=== PATIENT | male | born 1985 | race Caucasian/White ===

== ENCOUNTER 2016-10-15 14:40 | Emergency (ER) | payer SELFPAY ==
[2016-10-15 14:51] VITALS: BP 130/75; BMI 25.1
--- NOTE | 2016-10-15 16:33 | DR.GENAD ---
HPI - PCP Primary Care Physician: NFD - Complaint/Symptoms Chief Complaint Doctors Comments: Patient states that he has had diarrhea and took Imodium and that did not help initially now he has abdominal pain and not able to have BM Chief Complaint:: PT WENT TO [facility] LAST WEEK ABD DX HIM WITH COLITITIS,, AND PT C/O " SOMETHING POPPING IN HIS STOMACK AND HAVING PAIN SINCE THAN. PT ALSO IS HAVE DIARRHEA.. Self Treatment fo Chief Complaint: PT C/O HAVING A KNOT TO HIS EPIGASTRIC AREA .. - Source History Provided: Patient - Mode of Arrival Mode of Arrival: Ambulatory - Timing Onset of Chief Complaint: 10/10/16 PMH - PMH Past Medical History: No Past Surgical History: Yes Past Surgical History Comment: ORTHO- SURGERY.. - Family History History of Family Medical Conditions: No - Social History Does patient currently use any type of tobacco product: No Have you used tobacco products in the last 12 months: No Type of Tobacco Use: Cigarettes How many years tobacco product used: 15 Does any household member use tobacco: No Alcohol Use: None Do you use any recreational Drugs:: No Lives With: Family Lives Where: Home - infectious screening In the last 2 months have you had wt loss of >10#?: NO Have you had fever, night sweats or hemotysis?: No Have you traveled outside the country in the last 6 months?: No Isolation: Standard ROS - Review of Systems Eyes: No Symptoms Reported ENTM: No Symptoms Reported Respiratoy: No Symptoms Reported Cardiovascular: No Symptoms Reported Gastrointestinal/Abdominal: Abdominal Pain Genitourinary: No Symptoms Reported Neurological: No Symptoms Reported Musculoskeletal: No Symptoms Reported Integumentary: No Symptoms Reported Hematologic/Lymphatic: No Symptoms Reported Endocrine: No Symptoms Reported Psychiatric: No Symptoms Reported All Other Systems: Reviewed and Negative PE - Vital Signs Vitals: Temperature 99.5 F Pulse Rate 88 Respiratory Rate 20 Blood Pressure 130/75 O2 Sat by Pulse Oximetry 98 - General Limitations: No Limitations General Appearance: Alert, In No Apparent Distress - Head Head Exam: Normal Inspection, Atraumatic - Eyes Eye exam: Normal Appearance, PERRL, EOMI - ENT ENT Exam: Normal Exam External Ear Exam: Normal External Inspection TM/Canal Exam: Bilateral Normal Nose Exam: Normal Nose Exam Mouth Exam: Normal Inspection Throat Exam: Normal Inspection - Neck Neck Exam: Normal Inspection - Chest Chest Inspection: Normal Inspection - Respiratory Respiratory Exam: Normal Lung Sounds Bilat Respiratory Exam: Bilateral Clear to Auscultation - Cardiovascular Cardiovascular Exam: Regular Rate, Normal Rhythm - Abdominal Exam Abdominal Exam: Normal Inspection. negative: Distention, Rebound, Rigidity Abdominal Tenderness: Mild - Extremities Extremities Exam: Normal Inspection, Full ROM - Back Back Exam: Normal Inspection - Neurologic Neurological Exam: Alert, Oriented X3, CN II-XII Intact - Psychiatric Psychiatric Exam: Normal Affect - Skin Skin Exam: Warm, Dry, Intact Course - Reevaluation 1st: Improved ROR - Labs Reviewed Result Diagrams: 10/15/16 19:15 10/15/16 19:15 Laboratory: WBC 9.3 X10^3/uL (3.6-10.0) 10/15/16 19:15 RBC 4.97 X10^6/uL (4.7-6.0) 10/15/16 19:15 Hgb 14.2 g/dL (13.5-18.0) 10/15/16 19:15 Hct 41.6 % (42.0-54.0) L 10/15/16 19:15 MCV 83.8 fL (80.0-100.0) 10/15/16 19:15 MCH 28.6 pg (27.0-34.0) 10/15/16 19:15 MCHC 34.1 g/dL (33.0-35.0) 10/15/16 19:15 RDW 15.5 % (11.6-16.5) 10/15/16 19:15 Plt Count 248 X10^3/uL (150.0-450.0) 10/15/16 19:15 MPV 7.9 fL (7.4-11.0) 10/15/16 19:15 Neut % 53.2 % (42.0-75.0) 10/15/16 19:15 Lymph % 27.4 % (21.0-51.0) 10/15/16 19:15 Griggs % 15.6 % (0.0-13.0) H 10/15/16 19:15 Eos % 3.1 % (0.9-2.9) H 10/15/16 19:15 Baso % 0.7 % (0.2-1.0) 10/15/16 19:15 Neut # 5.0 x10^3/uL (2.2-4.8) H 10/15/16 19:15 Lymph # 2.5 X10^3/uL (1.3-2.9) 10/15/16 19:15 Griggs # 1.4 x10^3/uL (0.3-0.8) H 10/15/16 19:15 Eos # 0.3 x10^3/uL (0.0-0.2) H 10/15/16 19:15 Baso # 0.1 X10^3/uL (0.0-0.1) 10/15/16 19:15 Absolute Nucleated RBC 0.0 /100WBC 10/15/16 19:15 Specimen Type Clean catch urine 10/15/16 17:00 Urine Color Yellow (YELLOW) 10/15/16 17:00 Urine Appearance Clear (CLEAR) 10/15/16 17:00 Urine pH 5.0 (5.0 - 8.0) 10/15/16 17:00 Ur Specific [place] 1.020 (1.000-1.030) 10/15/16 17:00 Urine Protein Negative (NEGATIVE) 10/15/16 17:00 Urine Glucose (UA) Negative (NEGATIVE) 10/15/16 17:00 Urine Ketones Negative (NEGATIVE) 10/15/16 17:00 Urine Occult Blood Negative (NEGATIVE) 10/15/16 17:00 Urine Nitrite Negative (NEGATIVE) 10/15/16 17:00 Urine Bilirubin Negative (NEGATIVE) 10/15/16 17:00 Urine Urobilinogen Normal (NORMAL) 10/15/16 17:00 Ur Leukocyte Esterase Negative (NEGATIVE) 10/15/16 17:00 Urine RBC 0-1 /HPF (NEGATIVE) 10/15/16 17:00 Urine WBC None seen /HPF (NEGATIVE) 10/15/16 17:00 Ur Squamous Epith Cells Negative /HPF (NEGATIVE) 10/15/16 17:00 Amorphous Sediment Trace /HPF (NEGATIVE) 10/15/16 17:00 Urine Bacteria Trace /HPF (NEGATIVE) 10/15/16 17:00 Ur Culture Indicated? No/not indicated 10/15/16 17:00 Stool for White Cells Rare (None) 10/15/16 19:14 - XRAY XRAY Interpreted by: Radiologist (Acute Abdominal Series:The lungs are clear without consolidation,effusion or pneumothorax. The cardiac and mediastinal contours are within normal limits. Flat plate and upright evaluation of the abdomen demonstrates a normal bowel gas pattern. No gross free intraperitoneal air. No pathological soft tissus mass or4 calcification can be observed. The bony structures are grossly intact.) - Diagnosis Discharge Problem: Constipation due to slow transit - Discharge Plan Condition: Stable - Follow ups/Referrals Follow ups/Referrals: NFD,None [Primary Care Provider] - 3 days - Instructions
[2016-10-15 17:16] LABS: BILIRUBIN,URINE NEGATIVE (NEGATIVE); BLOOD/HEMOGLOBIN,URINE NEGATIVE (NEGATIVE); GLUCOSE, URINE NEGATIVE (NEGATIVE); KETONES,URINE NEGATIVE (NEGATIVE); LEUKOCYTE ESTERASE ,URINE NEGATIVE (NEGATIVE); NITRITES,URINE NEGATIVE (NEGATIVE); PROTEIN,URINE NEGATIVE (NEGATIVE); UROBILINOGEN,URINE NORMAL (NORMAL)
[2016-10-15 17:26] LABS: AMORPHOUS SEDIMENT,UR TRACE /HPF (NEGATIVE); APPEARANCE,URINE CLEAR (CLEAR); BACTERIA,URINE TRACE /HPF (NEGATIVE); COLOR,URINE YELLOW (YELLOW); RBC,URINE 0-1 /HPF (NEGATIVE); SQUAMOUS EPITHELIAL CELL,UR NEGATIVE /HPF (NEGATIVE)
[2016-10-15] MEDS ORDERED: NS 1000 ML 1,000 ML ONE (17:42)
[2016-10-15] MEDS ORDERED: NS 1000 ML 1,000 ML IV SCH (18:00)
[2016-10-15] MEDS ORDERED: TORADOL 30 MG VIAL IVP ONE (18:56)
[2016-10-15] MEDS ORDERED: TORADOL 30 MG VIAL ONE (18:58)
[2016-10-15 19:20] LABS: BASOPHILS # (AUTO) 0.1 X10^3/uL (0.0-0.1); BASOPHILS % (AUTO) 0.7 % (0.2-1.0); EOSINOPHILS # (AUTO) 0.3 x10^3/uL (0.0-0.2); EOSINOPHILS % (AUTO) 3.1 % (0.9-2.9); HEMATOCRIT 41.6 % (42.0-54.0); HEMOGLOBIN 14.2 g/dL (13.5-18.0); LYMPHOCYTES # (AUTO) 2.5 X10^3/uL (1.3-2.9); LYMPHOCYTES % (AUTO) 27.4 % (21.0-51.0); MEAN CORPUSCULAR HEMOGLOBIN 28.6 pg (27.0-34.0); MEAN CORPUSCULAR HGB CONC 34.1 g/dL (33.0-35.0); MEAN CORPUSCULAR VOLUME 83.8 fL (80.0-100.0); MEAN PLATELET VOLUME 7.9 fL (7.4-11.0); MONOCYTES # (AUTO) 1.4 x10^3/uL (0.3-0.8); MONOCYTES % (AUTO) 15.6 % (0.0-13.0); NEUTROPHILS % (AUTO) 53.2 % (42.0-75.0); PLATELET COUNT 248 X10^3/uL (150.0-450.0); RED BLOOD COUNT 4.97 X10^6/uL (4.7-6.0); RED CELL DISTRIBUTION WIDTH 15.5 % (11.6-16.5); WHITE BLOOD COUNT 9.3 X10^3/uL (3.6-10.0)
--- NOTE | 2016-10-15 19:23 | RAD ---
HISTORY: Abdominal pain Study: Acute abdominal series Comparison: None Findings: The lungs are clear without consolidation, effusion or pneumothorax. The cardiac and mediastinal co ntours are within normal limits. Flat plate and upright evaluation of the abdomen demonstrates a normal bowel gas pattern. No gross f ree intraperitoneal air. No pathological soft tissue mass or calcification can be observed. The bon y structures are grossly intact. IMPRESSION: 1. No acute cardiopulmonary disease. 2. No evidence for acute abdominal pathology identified. Reported By:
[2016-10-15 19:37] LABS: ALANINE AMINOTRANSFERASE 33 Units/L (12-78); ALBUMIN 3.7 g/dL (3.4-5.0); ALKALINE PHOSPHATASE 101 Units/L (46-116); ASPARTATE AMINO TRANSFERASE 19 Units/L (15-37); BLOOD UREA NITROGEN 14 mg/dL (7-18); CALCIUM 8.4 mg/dL (8.5-10.1); CARBON DIOXIDE 25.1 mmol/L (21-32); CHLORIDE 107 mmol/L (98-107); CREATININE 0.93 mg/dL (0.70-1.30); GLUCOSE 89 mg/dL (65-99); SODIUM 142 mmol/L (136-145); TOTAL PROTEIN 7.1 g/dL (6.4-8.2); eGFR BLACK RACES > 60 (>60); eGFR NON BLACK RACES > 60 (>60)
== END 2016-10-15 20:02 | disposition home or self-care (01) ==
LOC: ER 15:10
DX: K59.01 Slow transit constipation (principal)
CPT/HCPCS: 36415; 74022; 80053; 81001; 85025; 86140; 87205; 96365; 96374; 99283; A4222; J1885